=== PATIENT | female | born 1985 | race African-American/Black ===

== ENCOUNTER 2016-09-30 09:33 | Inpatient (IN) | payer MEDICAID, OTHER ==
[~2016-09-30] VITALS: Ht 180.3 cm; Wt 118.8 kg
[2016-09-30] MEDS ORDERED: LORazepam 2 MG/ML VIAL ONE (09:42)
[2016-09-30] MEDS ORDERED: DiphenhydrAMINE HCL 50 MG/ML VIAL ONE (09:42)
[2016-09-30] MEDS ORDERED: HALOPERIDOL LACTATE 5 MG/ML VIAL ONE (09:43)
[2016-09-30] MEDS ORDERED: LORazepam 2 MG/ML VIAL IM ONE (09:45)
[2016-09-30] MEDS ORDERED: HALOPERIDOL LACTATE 5 MG/ML VIAL IM ONE (09:45)
[2016-09-30] MEDS ORDERED: DiphenhydrAMINE HCL 50 MG/ML VIAL IM ONE (09:45)
[2016-09-30 10:39] LABS: BASOPHILS % (AUTO) 0.6 % (0.0-2.0); EOSINOPHILS % (AUTO) 0.3 % (1.0-6.0); LYMPHOCYTES # (AUTO) 2.1 K/uL (1.0-4.8); LYMPHOCYTES % (AUTO) 20.5 % (22.0-44.0); MEAN CORPUSCULAR HEMOGLOBIN 25.5 pg (26.0-34.0); MEAN CORPUSCULAR HGB CONC 32.6 G/dL (31.0-37.0); MEAN CORPUSCULAR VOLUME 78 fL (80-100); MONOCYTES # (AUTO) 0.4 K/uL (0.1-1.0); MONOCYTES % (AUTO) 3.9 % (2.0-9.0); NEUTROPHILS # (AUTO) 7.6 K/uL (1.8-7.7); NEUTROPHILS % (AUTO) 74.7 % (40.0-70.0); PLATELET COUNT (AUTO) 387 K/uL (150-450); RED BLOOD CELL COUNT(AUTO) 4.72 MIL/uL (4.00-5.20); RED CELL DISTRIBUTION WIDTH 16.1 % (11.5-14.5); WHITE BLOOD COUNT (AUTO) 10.2 K/uL (4.5-11.0)
[2016-09-30 10:43] LABS: ANION GAP 14 mmol/L (8-16); CALCIUM, TOTAL 8.6 mg/dL (8.8-10.5); CARBON DIOXIDE 24 mmol/L (22-29); CHLORIDE 106 mmol/L (98-107); CREATININE 1.04 mg/dL (0.60-1.30); GLOMERULAR FILTR. RATE CALC > 60 mL/min (>60); POTASSIUM 4.1 mmol/L (3.5-5.1); SODIUM SERUM 144 mmol/L (136-145); UREA NITROGEN, BLOOD 9 mg/dL (7-18)
[2016-09-30 10:49] LABS: ALANINE AMINOTRANSFERASE 16 U/L (12-78); ALBUMIN 3.7 g/dL (3.4-5.0); ASPARTATE AMINOTRANSFERASE 15 U/L (15-37); BILIRUBIN,TOTAL 0.3 mg/dL (0.1-1.0); TOTAL PROTEIN, SERUM 7.4 g/dL (6.4-8.2)
[2016-09-30] MEDS ORDERED: ZOLPIDEM TARTRATE 10 MG TABLET PO PRN (11:00)
[2016-09-30] MEDS ORDERED: HALOPERIDOL 5 MG TABLET PO PRN (11:00)
[2016-09-30 16:45] VITALS: BP 101/66
[2016-09-30] MEDS ORDERED: ALBUTEROL SULFATE HFA 90 MCG/PUFF 8 GM INHALER IH PRN (18:45)
[2016-10-01] MEDS ORDERED: PNEUMOCOCCAL VACCINE POLYVALENT 0.5 ML VIAL [PPSV23] IM ONE (02:15)
[2016-10-01 09:35] VITALS: BP 137/81
[2016-10-01 10:09] VITALS: BP 137/81
[2016-10-01] MEDS ORDERED: HALO5 PO (11:10)
[2016-10-01] MEDS ORDERED: LORA2TAB2 PO (11:10)
[2016-10-01] MEDS ORDERED: IBUP-1546 PO (11:10)
[2016-10-01] MEDS ORDERED: ZOLP10 PO (11:10)
[2016-10-01] MEDS ORDERED: ALBU8HFA IH (11:10)
[2016-10-01] MEDS ORDERED: ACET-2247 PO (11:10)
[2016-10-01 14:20] VITALS: BP 112/55
[2016-10-01] MEDS: IBUPROFEN 400 MG TABLET PO PRN (14:59)
[2016-10-01 16:32] VITALS: BP 119/60
[2016-10-02] MEDS: LORazepam 2 MG TABLET PO PRN (06:28)
[2016-10-02] MEDS: IBUPROFEN 400 MG TABLET PO PRN ×2 (06:28→14:56)
[2016-10-02] MEDS: ACETAMINOPHEN 325 MG TABLET PO PRN ×2 (07:20→18:22)
[2016-10-02 08:10] VITALS: BP 116/54
[2016-10-02 08:25] LABS: HEMOGLOBIN A1C 5.6 % (4.5-6.2)
[2016-10-02 08:44] LABS: CHOL/HDL RATIO 4.1 (3.9-5.7); THYROID STIMULATING HORMONE 0.55 uIU/mL (0.36-3.74)
[2016-10-02] MEDS: ARIPiprazole 5 MG TABLET PO SCH (09:20)
[2016-10-02] MEDS: FLUoxetine HCL 20 MG CAPSULE PO SCH (09:20)
[2016-10-02 12:14] VITALS: BP 123/68
[2016-10-02] MEDS ORDERED: IBUPROFEN 400 MG TABLET PO ONE (12:15)
[2016-10-02 15:56] VITALS: BP 124/82
[2016-10-02 16:19] VITALS: BP 126/84
[2016-10-02 18:23] VITALS: BP 127/81
[2016-10-03 04:47] VITALS: BP 116/75
[2016-10-03] MEDS: IBUPROFEN 400 MG TABLET PO PRN (04:50)
[2016-10-03] MEDS: LORazepam 2 MG TABLET PO PRN ×2 (04:50→08:53)
[2016-10-03 08:17] VITALS: BP 118/65
[2016-10-03] MEDS: FLUoxetine HCL 20 MG CAPSULE PO SCH (08:17)
[2016-10-03] MEDS: ACETAMINOPHEN 325 MG TABLET PO PRN ×2 (08:17→16:18)
[2016-10-03] MEDS: ARIPiprazole 5 MG TABLET PO SCH (08:17)
[2016-10-03 08:41] VITALS: BP 118/65
[2016-10-03] MEDS ORDERED: IBUPROFEN 600 MG TABLET PO PRN (10:45)
[2016-10-03 13:00] VITALS: BP 114/80
[2016-10-03] MEDS ORDERED: ARIP5TAB9 PO (14:54)
[2016-10-03] MEDS ORDERED: FLUO-191 PO (14:54)
== END 2016-10-03 17:00 | disposition home or self-care (01) | DRG 751 ==
LOC: EEVIPCON 09:35 → EMS 09:35 → B3A 11:14
PROVIDERS: ADMIT Psychiatry & Neurology Child & Adolescent Psychiatry; ATTEND Psychiatry & Neurology Child & Adolescent Psychiatry
DX: F33.2 Major depressive disorder, recurrent severe without psychotic features (principal); R45.851 Suicidal ideations; F25.9 Schizoaffective disorder, unspecified; F10.10 Alcohol abuse, uncomplicated; Y90.1 Blood alcohol level of 20-39 mg/100 ml; F29 Unspecified psychosis not due to a substance or known physiological condition; F19.10 Other psychoactive substance abuse, uncomplicated; M25.519 Pain in unspecified shoulder; J45.909 Unspecified asthma, uncomplicated; Z88.0 Allergy status to penicillin; Z28.21 Immunization not carried out because of patient refusal; Z71.41 Alcohol abuse counseling and surveillance of alcoholic; Z71.89 Other specified counseling
CPT/HCPCS: 83036; 84436; 84439; 84443; 96372; 99291; G0480; J1200; J1630; J2060

== ENCOUNTER 2016-10-01 10:41 | Emergency (ER) | payer MEDICAID, OTHER ==
[~2016-10-01] VITALS: Ht 170.2 cm; Wt 95.5 kg
[2016-10-01] MEDS ORDERED: LORA2TAB2 PO (11:10)
[2016-10-01] MEDS ORDERED: ZOLP10 PO (11:10)
[2016-10-01] MEDS ORDERED: ALBU8HFA IH (11:10)
[2016-10-01] MEDS ORDERED: IBUP-1546 PO (11:10)
[2016-10-01] MEDS ORDERED: HALO5 PO (11:10)
[2016-10-01] MEDS ORDERED: ACET-2247 PO (11:10)
[2016-10-01] MEDS ORDERED: ACETAMINOPHEN 325 MG TABLET PO ONE (11:30)
[2016-10-01 12:43] VITALS: BP 108/73
== END 2016-10-01 13:50 | disposition other institution (70) ==
LOC: EMS 10:42
DX: S01.81XA Laceration without foreign body of other part of head, initial encounter (principal); F32.9 Major depressive disorder, single episode, unspecified; J45.909 Unspecified asthma, uncomplicated; Z88.0 Allergy status to penicillin; W22.01XA Walked into wall, initial encounter; Y93.89 Activity, other specified; Y92.89 Other specified places as the place of occurrence of the external cause; Y99.8 Other external cause status
CPT/HCPCS: 70450; 72125; 99285

== ENCOUNTER 2017-01-13 00:09 | Emergency (ER) | payer OTHER ==
[~2017-01-13] VITALS: Ht 165.1 cm; Wt 95.5 kg
[~2017-01-13 00:09] MED LIST: ARIP5TAB8 PO; FLUO-191 PO
[2017-01-13 00:33] VITALS: BP 123/97
[2017-01-13] MEDS ORDERED: TRAZ-144 PO (00:55)
[2017-01-13] MEDS ORDERED: FLUT110HFA IH (00:55)
[2017-01-13] MEDS ORDERED: RISP1 PO (00:55)
== END 2017-01-13 01:15 | disposition left against medical advice (07) ==
LOC: EMS 00:10
DX: M79.631 Pain in right forearm (principal); J45.909 Unspecified asthma, uncomplicated; F12.90 Cannabis use, unspecified, uncomplicated; F17.210 Nicotine dependence, cigarettes, uncomplicated; Z53.21 Procedure and treatment not carried out due to patient leaving prior to being seen by health care provider

== ENCOUNTER 2017-01-13 10:14 | Emergency (ER) | payer OTHER ==
[~2017-01-13] VITALS: Ht 165.1 cm; Wt 95.9 kg
[~2017-01-13 10:14] MED LIST changes: +FLUT110HFA IH; +RISP1 PO; +TRAZ-144 PO
[2017-01-13] MEDS ORDERED: HYDROCODONE/ACETAMINOPHEN 5-325 MG TABLET PO ONE (11:45)
[2017-01-13] MEDS ORDERED: SULFAMETHOX/TRIMETH DS 800-160 MG/TABLET PO ONE (11:45)
[2017-01-13 12:03] VITALS: BP 118/77
== END 2017-01-13 12:18 | disposition home or self-care (01) ==
LOC: EMS 10:17
DX: L03.113 Cellulitis of right upper limb (principal); J45.909 Unspecified asthma, uncomplicated; F32.9 Major depressive disorder, single episode, unspecified; F17.210 Nicotine dependence, cigarettes, uncomplicated; F12.10 Cannabis abuse, uncomplicated; F10.10 Alcohol abuse, uncomplicated; Z88.0 Allergy status to penicillin
CPT/HCPCS: 99283

== ENCOUNTER 2017-01-15 20:41 | Emergency (ER) | payer OTHER ==
[~2017-01-15] VITALS: Ht 165.1 cm; Wt 96.0 kg
[~2017-01-15 20:41] MED LIST changes: -ARIP5TAB8 PO
[2017-01-15 21:59] VITALS: BP 121/76
[2017-01-15 22:17] LABS: BASOPHILS % (AUTO) 0.1 % (0.0-2.0); EOSINOPHILS % (AUTO) 0.9 % (1.0-6.0); HEMATOCRIT 34.1 % (36-46); HEMOGLOBIN 11.2 g/dL (12.0-16.0); LYMPHOCYTES # (AUTO) 1.7 K/uL (1.0-4.8); LYMPHOCYTES % (AUTO) 11.5 % (22.0-44.0); MEAN CORPUSCULAR HEMOGLOBIN 25.4 pg (26.0-34.0); MEAN CORPUSCULAR HGB CONC 32.9 G/dL (31.0-37.0); MEAN CORPUSCULAR VOLUME 77 fL (80-100); MONOCYTES # (AUTO) 0.6 K/uL (0.1-1.0); MONOCYTES % (AUTO) 3.8 % (2.0-9.0); NEUTROPHILS # (AUTO) 12.3 K/uL (1.8-7.7); NEUTROPHILS % (AUTO) 83.7 % (40.0-70.0); PLATELET COUNT (AUTO) 374 K/uL (150-450); RED BLOOD CELL COUNT(AUTO) 4.42 MIL/uL (4.00-5.20); RED CELL DISTRIBUTION WIDTH 14.8 % (11.5-14.5); WHITE BLOOD COUNT (AUTO) 14.6 K/uL (4.5-11.0)
[2017-01-15 22:26] LABS: ANION GAP 9 mmol/L (8-16); CALCIUM, TOTAL 8.9 mg/dL (8.8-10.5); CARBON DIOXIDE 24 mmol/L (22-29); CHLORIDE 105 mmol/L (98-107); CREATININE 0.95 mg/dL (0.60-1.30); GLOMERULAR FILTR. RATE CALC > 60 mL/min (>60); POTASSIUM 3.8 mmol/L (3.5-5.1); SODIUM SERUM 138 mmol/L (136-145); UREA NITROGEN, BLOOD 13 mg/dL (7-18)
[2017-01-15 22:32] LABS: ALANINE AMINOTRANSFERASE 12 U/L (12-78); ALBUMIN 3.2 g/dL (3.4-5.0); ASPARTATE AMINOTRANSFERASE 10 U/L (15-37); BILIRUBIN,TOTAL 0.3 mg/dL (0.1-1.0); TOTAL PROTEIN, SERUM 7.4 g/dL (6.4-8.2)
[2017-01-15 22:36] LABS: RBC MORPHOLOGY COMMENT ABNORMAL RBC MORPH
[2017-01-15] MEDS ORDERED: ACETAMINOPHEN 325 MG TABLET PO PRN (22:45)
[2017-01-15] MEDS ORDERED: MORPHINE SULFATE 2 MG/ML SYRINGE IVP PRN (22:45)
[2017-01-15] MEDS ORDERED: MAGNESIUM HYDROXIDE SUSPENSION 30 ML UDCUP PO PRN (22:45)
[2017-01-15] MEDS ORDERED: OxyCODONE HCL/ACETAMINOPHEN 5-325 MG TABLET PO PRN (22:45)
[2017-01-15] MEDS ORDERED: VANCOMYCIN HCL 1 GM/D5% WATER 200 ML IV ONE (23:00)
[2017-01-16] MEDS ORDERED: VANCOMYCIN HCL 1 GM/D5% WATER 200 ML IV ONE (01:00)
[2017-01-16] MEDS ORDERED: VANCOMYCIN HCL 1.5 GM in DEXTROSE 5%-WATER 250 ML IV SCH (08:00)
[2017-01-16] MEDS ORDERED: DOCUSATE SODIUM 100 MG CAPSULE PO SCH (09:00)
[2017-01-16] MEDS ORDERED: PANTOPRAZOLE SODIUM 40 MG DR TABLET PO SCH (09:00)
== END 2017-01-15 23:38 | disposition left against medical advice (07) ==
LOC: EMS 20:43 → 6N 22:53 → UNDOADMIN 22:53 → EMS 23:38
DX: L02.413 Cutaneous abscess of right upper limb (principal); J45.909 Unspecified asthma, uncomplicated; F17.210 Nicotine dependence, cigarettes, uncomplicated; F12.90 Cannabis use, unspecified, uncomplicated; F15.90 Other stimulant use, unspecified, uncomplicated
CPT/HCPCS: 36415; 80053; 80307; 84703; 85025; 99284; G0480; J3370; J7060

== ENCOUNTER 2017-12-12 06:23 | Emergency (ER) | payer OTHER ==
[~2017-12-12] VITALS: Ht 165.1 cm; Wt 90.9 kg
[~2017-12-12 06:23] MED LIST changes: -TRAZ-144 PO; +TRAZ-219 PO
[2017-12-12] MEDS ORDERED: NAPR-58 PO (06:42)
[2017-12-12] MEDS ORDERED: GABA300T26 PO (06:42)
[2017-12-12] MEDS ORDERED: CYCL10 PO (06:42)
[2017-12-12 06:58] LABS: BASOPHILS % (AUTO) 0.8 % (0.0-2.0); EOSINOPHILS % (AUTO) 1.4 % (1.0-6.0); HEMATOCRIT 36.4 % (36-46); HEMOGLOBIN 12.1 g/dL (12.0-16.0); LYMPHOCYTES # (AUTO) 2.1 K/uL (1.0-4.8); LYMPHOCYTES % (AUTO) 25.3 % (22.0-44.0); MEAN CORPUSCULAR HEMOGLOBIN 25.5 pg (26.0-34.0); MEAN CORPUSCULAR HGB CONC 33.2 G/dL (31.0-37.0); MEAN CORPUSCULAR VOLUME 77 fL (80-100); MONOCYTES # (AUTO) 0.5 K/uL (0.1-1.0); MONOCYTES % (AUTO) 5.7 % (2.0-9.0); NEUTROPHILS # (AUTO) 5.6 K/uL (1.8-7.7); NEUTROPHILS % (AUTO) 66.8 % (40.0-70.0); PLATELET COUNT (AUTO) 379 K/uL (150-450); RED BLOOD CELL COUNT(AUTO) 4.75 MIL/uL (4.00-5.20); RED CELL DISTRIBUTION WIDTH 16.4 % (11.5-14.5)
[2017-12-12 07:11] LABS: ANION GAP 7 mmol/L (8-16); CALCIUM, TOTAL 9.1 mg/dL (8.8-10.5); CARBON DIOXIDE 28 mmol/L (22-29); CHLORIDE 104 mmol/L (98-107); CREATININE 0.75 mg/dL (0.60-1.30); GLOMERULAR FILTR. RATE CALC > 60 mL/min (>60); GLUCOSE,RANDOM 92 mg/dL (70-110); POTASSIUM 4.4 mmol/L (3.5-5.1); SODIUM SERUM 139 mmol/L (136-145); UREA NITROGEN, BLOOD 10 mg/dL (7-18)
[2017-12-12 07:24] LABS: ALANINE AMINOTRANSFERASE 20 U/L (12-78); ALBUMIN 3.4 g/dL (3.4-5.0); ALKALINE PHOSPHATASE 65 U/L (46-116); ASPARTATE AMINOTRANSFERASE 14 U/L (15-37); BILIRUBIN,TOTAL 0.1 mg/dL (0.1-1.0); LIPASE 122 U/L (73-393); TOTAL PROTEIN, SERUM 7.1 g/dL (6.4-8.2)
[2017-12-12] MEDS ORDERED: ONDANSETRON HCL 4 MG/2 ML VIAL IVP ONE (07:45)
[2017-12-12] MEDS ORDERED: SODIUM CHLORIDE 0.9% 1,000 ML IV ONE (07:45)
[2017-12-12 08:01] LABS: APPEARANCE,URINE CLEAR (CLEAR); BILIRUBIN,URINE NEGATIVE (NEGATIVE); GLUCOSE, URINE (UA) NEGATIVE (NEGATIVE); KETONES,URINE NEGATIVE (NEGATIVE); LEUKOCYTE ESTERASE ,URINE NEGATIVE (NEGATIVE); NITRATE,URINE NEGATIVE (NEGATIVE); OCCULT BLOOD,URINE TRACE (NEGATIVE); PROTEIN,URINE NEGATIVE (NEGATIVE); UROBILINOGEN,URINE 0.2 mg/dL (<=1.0)
[2017-12-12 08:06] LABS: AMPHET/METH SCREEN,URINE NEGATIVE (NEGATIVE); BARBITURATE SCREEN, URINE NEGATIVE (NEGATIVE); BENZODIAZEPINES SCREEN,URINE NEGATIVE (NEGATIVE); CANNABINOID SCREEN,URINE NEGATIVE (NEGATIVE); COCAINE SCREEN,URINE NEGATIVE (NEGATIVE); METHADONE SCREEN, URINE NEGATIVE (NEGATIVE); OPIATE SCREEN,URINE NEGATIVE (NEGATIVE)
[2017-12-12 08:09] LABS: PHENCYCLIDINE SCREEN,URINE NEGATIVE (NEGATIVE)
[2017-12-12 08:15] LABS: BACTERIA,URINE Rare /HPF (None Seen); RBC,URINE 0-2 /HPF (0-2); SQUAMOUS EPITHELIAL CELL,UR Few /LPF (None Seen); WBC,URINE 0-2 /HPF (0-5)
[2017-12-12] MEDS ORDERED: PHENOBARB/HYOSCY/ATROPINE/SCOP 5 ML UDCUP ELIXIR PO ONE (12:15)
[2017-12-12 13:17] VITALS: BP 127/74
== END 2017-12-12 14:13 | disposition home or self-care (01) ==
LOC: EMS 06:23
DX: R10.13 Epigastric pain (principal); J45.909 Unspecified asthma, uncomplicated; F32.9 Major depressive disorder, single episode, unspecified; F17.210 Nicotine dependence, cigarettes, uncomplicated; F15.90 Other stimulant use, unspecified, uncomplicated; F12.90 Cannabis use, unspecified, uncomplicated; Z88.0 Allergy status to penicillin; Z79.891 Long term (current) use of opiate analgesic; Z79.1 Long term (current) use of non-steroidal anti-inflammatories (NSAID)
CPT/HCPCS: 36415; 74022; 80053; 80307; 81001; 83690; 84703; 85025; 96374; 99285; J2405; J7030

== ENCOUNTER 2018-01-19 17:08 | Emergency (ER) | payer OTHER ==
[~2018-01-19] VITALS: Ht 165.1 cm; Wt 90.9 kg
[~2018-01-19 17:08] MED LIST changes: +CYCL10 PO; -FLUO-191 PO; +GABA300T26 PO; +NAPR-58 PO; -RISP1 PO; -TRAZ-219 PO
[2018-01-19] MEDS ORDERED: ACETAMINOPHEN 500 MG TABLET PO ONE (18:30)
[2018-01-19 19:25] VITALS: BP 132/79
== END 2018-01-19 20:10 | disposition home or self-care (01) ==
LOC: EMS 17:08
DX: S80.12XA Contusion of left lower leg, initial encounter (principal); J45.909 Unspecified asthma, uncomplicated; F32.9 Major depressive disorder, single episode, unspecified; F17.210 Nicotine dependence, cigarettes, uncomplicated; F19.10 Other psychoactive substance abuse, uncomplicated; F14.90 Cocaine use, unspecified, uncomplicated; Z88.0 Allergy status to penicillin; Z79.899 Other long term (current) drug therapy; X58.XXXA Exposure to other specified factors, initial encounter; Y93.89 Activity, other specified; Y92.098 Other place in other non-institutional residence as the place of occurrence of the external cause; Y99.8 Other external cause status
CPT/HCPCS: 99406

== ENCOUNTER 2018-01-26 08:42 | Emergency (ER) | payer OTHER ==
[~2018-01-26] VITALS: Ht 172.7 cm; Wt 84.1 kg
[~2018-01-26 08:42] MED LIST changes: -CYCL10 PO; -FLUT110HFA IH; -GABA300T26 PO
[2018-01-26] MEDS ORDERED: MORPHINE SULFATE 10 MG/ML SYRINGE IVP ONE (09:15)
[2018-01-26] MEDS ORDERED: SODIUM CHLORIDE 0.9% 1,000 ML IV ONE ×2 (09:15→10:30)
[2018-01-26 09:21] LABS: BASOPHILS % (AUTO) 0.1 % (0.0-2.0); EOSINOPHILS % (AUTO) 0.3 % (1.0-6.0); HEMATOCRIT 37.9 % (36-46); HEMOGLOBIN 12.5 g/dL (12.0-16.0); LYMPHOCYTES # (AUTO) 1.4 K/uL (1.0-4.8); LYMPHOCYTES % (AUTO) 8.2 % (22.0-44.0); MEAN CORPUSCULAR HEMOGLOBIN 25.7 pg (26.0-34.0); MEAN CORPUSCULAR HGB CONC 32.9 G/dL (31.0-37.0); MEAN CORPUSCULAR VOLUME 78 fL (80-100); MONOCYTES # (AUTO) 0.5 K/uL (0.1-1.0); MONOCYTES % (AUTO) 2.8 % (2.0-9.0); NEUTROPHILS # (AUTO) 15.4 K/uL (1.8-7.7); PLATELET COUNT (AUTO) 291 K/uL (150-450); RED BLOOD CELL COUNT(AUTO) 4.84 MIL/uL (4.00-5.20); RED CELL DISTRIBUTION WIDTH 17.1 % (11.5-14.5)
[2018-01-26 09:23] LABS: NEUTROPHILS % (AUTO) 88.6 % (40.0-70.0)
[2018-01-26 09:30] LABS: ANION GAP 7 mmol/L (8-16); CALCIUM, TOTAL 8.7 mg/dL (8.8-10.5); CARBON DIOXIDE 27 mmol/L (22-29); CHLORIDE 98 mmol/L (98-107); CREATININE 0.83 mg/dL (0.60-1.30); GLOMERULAR FILTR. RATE CALC > 60 mL/min (>60); GLUCOSE,RANDOM 102 mg/dL (70-110); POTASSIUM 3.7 mmol/L (3.5-5.1); SODIUM SERUM 132 mmol/L (136-145); UREA NITROGEN, BLOOD 9 mg/dL (7-18)
[2018-01-26 09:44] LABS: ALANINE AMINOTRANSFERASE 17 U/L (12-78); ALBUMIN 3.3 g/dL (3.4-5.0); ALKALINE PHOSPHATASE 59 U/L (46-116); ASPARTATE AMINOTRANSFERASE 13 U/L (15-37); BILIRUBIN,TOTAL 0.6 mg/dL (0.1-1.0); HCG,QUANTITATIVE < 1 mIU/mL (0-6); LIPASE 72 U/L (73-393); TOTAL PROTEIN, SERUM 7.4 g/dL (6.4-8.2)
[2018-01-26] MEDS ORDERED: CefTRIAXone SODIUM 1 GM/VIAL IV ONE (13:00)
[2018-01-26] MEDS ORDERED: KETOROLAC TROMETHAMINE 30 MG/ML VIAL IVP ONE (13:15)
[2018-01-26] MEDS ORDERED: DEXTROSE 5% IV ONE (13:30)
[2018-01-26] MEDS ORDERED: WATER IV ONE (13:30)
[2018-01-26] MEDS ORDERED: CEFTRIAXONE SODIUM IV ONE (13:30)
[2018-01-26 13:33] LABS: AMPHET/METH SCREEN,URINE POSITIVE (NEGATIVE); BARBITURATE SCREEN, URINE NEGATIVE (NEGATIVE); BENZODIAZEPINES SCREEN,URINE NEGATIVE (NEGATIVE); CANNABINOID SCREEN,URINE POSITIVE (NEGATIVE); COCAINE SCREEN,URINE NEGATIVE (NEGATIVE); METHADONE SCREEN, URINE NEGATIVE (NEGATIVE); OPIATE SCREEN,URINE POSITIVE (NEGATIVE)
[2018-01-26 13:34] LABS: PHENCYCLIDINE SCREEN,URINE NEGATIVE (NEGATIVE)
[2018-01-26 13:37] LABS: APPEARANCE,URINE CLEAR (CLEAR); BILIRUBIN,URINE NEGATIVE (NEGATIVE); GLUCOSE, URINE (UA) NEGATIVE (NEGATIVE); KETONES,URINE 40 mg/dL (NEGATIVE); LEUKOCYTE ESTERASE ,URINE TRACE (NEGATIVE); NITRATE,URINE NEGATIVE (NEGATIVE); OCCULT BLOOD,URINE NEGATIVE (NEGATIVE); PROTEIN,URINE NEGATIVE (NEGATIVE); UROBILINOGEN,URINE 0.2 mg/dL (<=1.0)
[2018-01-26 13:56] LABS: RBC,URINE None Seen /HPF (0-2)
[2018-01-26 13:57] LABS: BACTERIA,URINE None Seen /HPF (None Seen); SQUAMOUS EPITHELIAL CELL,UR Few /LPF (None Seen); WBC,URINE 0-2 /HPF (0-5)
[2018-01-26 16:51] LABS: HEMATOCRIT 36.7 % (36-46); HEMOGLOBIN 11.9 g/dL (12.0-16.0); MEAN CORPUSCULAR HEMOGLOBIN 25.4 pg (26.0-34.0); MEAN CORPUSCULAR HGB CONC 32.5 G/dL (31.0-37.0); MEAN CORPUSCULAR VOLUME 78 fL (80-100); PLATELET COUNT (AUTO) 275 K/uL (150-450); RED BLOOD CELL COUNT(AUTO) 4.69 MIL/uL (4.00-5.20); RED CELL DISTRIBUTION WIDTH 16.3 % (11.5-14.5)
[2018-01-26 17:11] VITALS: BP 104/64
[2018-01-26 18:05] LABS: BAND NEUTROPHILS % (MANUAL) 6 % (0-5); LYMPHOCYTES % (MANUAL) 10 % (22-44); MONOCYTES % (MANUAL) 4 % (2-9); SEGMENTED NEUTROPHILS % 80 % (40-70)
== END 2018-01-26 17:55 | disposition home or self-care (01) ==
LOC: EMS 08:43
DX: R10.30 Lower abdominal pain, unspecified (principal); R30.0 Dysuria; J45.909 Unspecified asthma, uncomplicated; F32.9 Major depressive disorder, single episode, unspecified; F17.210 Nicotine dependence, cigarettes, uncomplicated; F12.90 Cannabis use, unspecified, uncomplicated; F15.90 Other stimulant use, unspecified, uncomplicated; Z88.0 Allergy status to penicillin
CPT/HCPCS: 36415; 51702; 74176; 76856; 80053; 80307; 81001; 83690; 84702; 85025; 87491; 87591; 96374; 96375; 99285; J0696; J1885; J2270; J7030; J7060

== ENCOUNTER 2018-01-28 10:55 | Emergency (ER) | payer OTHER ==
[~2018-01-28] VITALS: Ht 165.1 cm; Wt 88.6 kg
[2018-01-28 13:50] LABS: BASOPHILS % (AUTO) 0.3 % (0.0-2.0); EOSINOPHILS % (AUTO) 0.7 % (1.0-6.0); HEMATOCRIT 34.3 % (36-46); HEMOGLOBIN 11.2 g/dL (12.0-16.0); LYMPHOCYTES # (AUTO) 1.2 K/uL (1.0-4.8); LYMPHOCYTES % (AUTO) 10.6 % (22.0-44.0); MEAN CORPUSCULAR HEMOGLOBIN 25.8 pg (26.0-34.0); MEAN CORPUSCULAR HGB CONC 32.8 G/dL (31.0-37.0); MEAN CORPUSCULAR VOLUME 79 fL (80-100); MONOCYTES # (AUTO) 0.5 K/uL (0.1-1.0); MONOCYTES % (AUTO) 4.3 % (2.0-9.0); NEUTROPHILS # (AUTO) 9.2 K/uL (1.8-7.7); NEUTROPHILS % (AUTO) 84.1 % (40.0-70.0); PLATELET COUNT (AUTO) 313 K/uL (150-450); RED BLOOD CELL COUNT(AUTO) 4.36 MIL/uL (4.00-5.20); RED CELL DISTRIBUTION WIDTH 16.8 % (11.5-14.5)
[2018-01-28 14:00] LABS: ANION GAP 7 mmol/L (8-16); CALCIUM, TOTAL 8.6 mg/dL (8.8-10.5); CARBON DIOXIDE 26 mmol/L (22-29); CHLORIDE 101 mmol/L (98-107); GLOMERULAR FILTR. RATE CALC > 60 mL/min (>60); GLUCOSE,RANDOM 94 mg/dL (70-110); POTASSIUM 3.4 mmol/L (3.5-5.1); SODIUM SERUM 134 mmol/L (136-145); UREA NITROGEN, BLOOD 5 mg/dL (7-18)
[2018-01-28 14:12] LABS: ALANINE AMINOTRANSFERASE 14 U/L (12-78); ALBUMIN 2.7 g/dL (3.4-5.0); ALKALINE PHOSPHATASE 69 U/L (46-116); ASPARTATE AMINOTRANSFERASE 11 U/L (15-37); BILIRUBIN,TOTAL 0.3 mg/dL (0.1-1.0); HCG,QUANTITATIVE < 1 mIU/mL (0-6); LIPASE 87 U/L (73-393); TOTAL PROTEIN, SERUM 7.2 g/dL (6.4-8.2)
[2018-01-28 14:19] LABS: APPEARANCE,URINE CLOUDY (CLEAR); BILIRUBIN,URINE NEGATIVE (NEGATIVE); GLUCOSE, URINE (UA) NEGATIVE (NEGATIVE); KETONES,URINE NEGATIVE (NEGATIVE); LEUKOCYTE ESTERASE ,URINE SMALL (NEGATIVE); NITRATE,URINE NEGATIVE (NEGATIVE); OCCULT BLOOD,URINE LARGE (NEGATIVE); PROTEIN,URINE TRACE (NEGATIVE)
[2018-01-28 14:22] LABS: RBC,URINE >100 /HPF (0-2)
[2018-01-28 14:23] LABS: BACTERIA,URINE Few /HPF (None Seen); SQUAMOUS EPITHELIAL CELL,UR Moderate /LPF (None Seen)
[2018-01-28 14:45] VITALS: BP 128/81
[2018-01-28] MEDS ORDERED: IBUPROFEN 600 MG TABLET PO ONE (14:45)
== END 2018-01-28 15:21 | disposition home or self-care (01) ==
LOC: EMS 10:56
DX: N73.0 Acute parametritis and pelvic cellulitis (principal); J45.909 Unspecified asthma, uncomplicated; F32.9 Major depressive disorder, single episode, unspecified; F17.210 Nicotine dependence, cigarettes, uncomplicated; F12.90 Cannabis use, unspecified, uncomplicated; F15.90 Other stimulant use, unspecified, uncomplicated; Z88.0 Allergy status to penicillin

== ENCOUNTER 2018-02-19 23:19 | Emergency (ER) | payer OTHER ==
[~2018-02-19] VITALS: Ht 165.1 cm; Wt 90.9 kg
[2018-02-20] MEDS ORDERED: KETOROLAC TROMETHAMINE 60 MG/2 ML VIAL IM ONE (00:15)
[2018-02-20 00:46] LABS: BASOPHILS % (AUTO) 0.4 % (0.0-2.0); EOSINOPHILS % (AUTO) 0.2 % (1.0-6.0); HEMATOCRIT 35.8 % (36-46); HEMOGLOBIN 11.7 g/dL (12.0-16.0); LYMPHOCYTES # (AUTO) 1.6 K/uL (1.0-4.8); LYMPHOCYTES % (AUTO) 8.5 % (22.0-44.0); MEAN CORPUSCULAR HGB CONC 32.6 G/dL (31.0-37.0); MEAN CORPUSCULAR VOLUME 77 fL (80-100); MONOCYTES # (AUTO) 0.9 K/uL (0.1-1.0); MONOCYTES % (AUTO) 4.9 % (2.0-9.0); NEUTROPHILS # (AUTO) 15.7 K/uL (1.8-7.7); PLATELET COUNT (AUTO) 273 K/uL (150-450); RED BLOOD CELL COUNT(AUTO) 4.67 MIL/uL (4.00-5.20); RED CELL DISTRIBUTION WIDTH 15.4 % (11.5-14.5)
[2018-02-20 01:06] VITALS: BP 120/69
[2018-02-20] MEDS ORDERED: AZITHROMYCIN 250 MG TABLET PO ONE (01:15)
== END 2018-02-20 01:36 | disposition home or self-care (01) ==
LOC: EMS 23:20
DX: M54.5 Low back pain (principal); J02.0 Streptococcal pharyngitis; M79.10 Myalgia, unspecified site; G89.29 Other chronic pain; J45.909 Unspecified asthma, uncomplicated; F32.9 Major depressive disorder, single episode, unspecified; F17.210 Nicotine dependence, cigarettes, uncomplicated; F12.90 Cannabis use, unspecified, uncomplicated; F15.90 Other stimulant use, unspecified, uncomplicated; Z88.0 Allergy status to penicillin
CPT/HCPCS: 36415; 85025; 87430; 96372; 99283; J1885

== ENCOUNTER 2024-06-07 11:51 | Emergency (ER) | payer OTHER ==
[~2024-06-07] VITALS: Ht 165.1 cm; Wt 100.0 kg
[2024-06-07 12:03] VITALS: BP 111/80; PULSE 84; RESP 18; TEMP 97.9; O2SAT 99
[2024-06-07] MEDS ORDERED: HYDR-4062 PO (12:37)
[2024-06-07] MEDS: HYDROCODONE/ACETAMINOPHEN 5-325 MG TABLET PO ONE (12:54)
== END 2024-06-07 12:57 | disposition home or self-care (01) ==
LOC: EMS 11:51
DX: K02.9 Dental caries, unspecified (principal); J45.909 Unspecified asthma, uncomplicated; F12.90 Cannabis use, unspecified, uncomplicated; F15.90 Other stimulant use, unspecified, uncomplicated; F17.290 Nicotine dependence, other tobacco product, uncomplicated; F32.A Depression, unspecified; Z88.0 Allergy status to penicillin
CPT/HCPCS: 99283

== ENCOUNTER 2024-08-23 13:14 | Emergency (ER) | payer OTHER ==
[~2024-08-23] VITALS: Ht 165.1 cm; Wt 109.1 kg
[~2024-08-23 13:14] MED LIST changes: +HYDR-4062 PO; -NAPR-58 PO
[2024-08-23 13:16] VITALS: TEMP 97.5
[2024-08-23] MEDS ORDERED: IBUP-1554 PO (14:10)
[2024-08-23] MEDS ORDERED: ACET-2080 PO (14:10)
[2024-08-23 15:16] VITALS: BP 131/84; PULSE 88; RESP 16; O2SAT 100
== END 2024-08-23 15:45 | disposition home or self-care (01) ==
LOC: EMS 13:19
DX: K02.9 Dental caries, unspecified (principal); J45.909 Unspecified asthma, uncomplicated; F12.90 Cannabis use, unspecified, uncomplicated; F15.10 Other stimulant abuse, uncomplicated; F17.290 Nicotine dependence, other tobacco product, uncomplicated; Z88.0 Allergy status to penicillin
CPT/HCPCS: 99283; Z7502